=== PATIENT | male | born 1990 | race Caucasian/White ===

== ENCOUNTER 2021-11-27 00:25 | Day surgery (SDC) | payer BC, SELFPAY ==
[2021-11-12 13:47] VITALS: BMI 24.5
--- NOTE | 2021-11-26 10:44 | WPDANESEPPF ---
Anes - Initial Pre Proc Eval Procedure: Operation Date: 11/27/21 09:00 Proposed Procedures p Colonoscopy - Rj Pena MD Date/Time: 11/26/21 10:44 Surgeon: Rj Pena MD Pre Op Diagnosis: melena Patient Data Age: 31 Gender: M Height: 1.83 m Weight: 82 kg Allergies Allergy/AdvReac Type Severity Reaction Status Date / Time No Known Allergies Allergy Verified 11/27/21 07:34 Home Medications Medication Instructions Recorded Confirmed Type lisdexamfetamine 50 mg capsule 50 mg PO DAILY 10/09/20 11/12/21 History (Vyvanse) fluticasone propionate 50 2 spray intranasal DAILY #16 grams 12/22/20 11/12/21 Rx mcg/actuation nasal spray,suspension (Flonase Allergy Relief) hydrocortisone 2.5 % topical cream 1 applic RECTAL TID PRN 10/12/21 11/12/21 Rx with perineal applicator hemorrhoids #30 grams Patient hx anesthesia problems: none Family hx anesthesia problems: none Results Review: All pre-operative results and documents have been reviewed as part of the pre-operative evaluation. [facility] Past Medical History Medical History (Updated 11/26/21 @ 10:45 by Dk Baird DO) Anxiety Surgical History Surgical History H/O removal of cyst from lower back Family History Family History Mother Family history of thyroid disease Family history of obesity Father Diabetes mellitus Family history of obesity Depression Grandparent Diabetes mellitus Family history of Alzheimer's disease Mother Depression Hypertension Social History Social History Smoking status: Never smoker Second hand tobacco smoke exposure: No Alcohol intake: never Substance use: current Substance use type: marijuana Living arrangements: alone Spiritual care concerns: No Anes - Eval Final PreProcedure Day of Procedure 11/26/21 10:44 Patient weight: normal Heart: regular rate and rhythm Lungs: clear to auscultation and normal air movement Airway: Mallampati scale class II Neurological: alert and oriented Last oral intake: >/= 8 hours ASA classification: II Emergent: no Anesthetic plan: proceed Anesthesia type and monitoring: general GIVS and standard monitoring Results Review: All pre-operative results and documents have been reviewed as part of the pre-operative evaluation. Informed Consent: The patient's anesthetic plan and its attendant risks and benefits were discussed with the patient/family/POA. Questions were solicited and answers provided to the satisfaction of the patient/family/POA.
[2021-11-27 07:42] VITALS: BP 118/77; PULSE 60; RESP 20; TEMP 36.4; O2SAT 99; BMI 24.6
[2021-11-27] MEDS: LACTATED RINGERS 1,000 ML 150 ML IV CONT (07:53)
--- NOTE | 2021-11-27 08:45 | PM.HPGS ---
History of Present Illness History of Present Illness Consent: Risks, benefits, and alternatives have been discussed and questions answered. Patient agrees to proceed with procedure. Chief complaint: melena Narrative: Joni Corrigan is a 31 year old male with intermittent blood in stool Review of Systems Constitutional: Constitutional: Denies headache(s) and Denies weakness Eyes: Eyes: Denies blurry vision ENT: Reports Normal hearing present, Denies headache(s) and Denies neck pain Cardiovascular: Cardiovascular: Denies chest pain and Denies dyspnea Respiratory: Respiratory: Denies dyspnea Gastrointestinal: Gastrointestinal: Reports no additional gastrointestinal complaints Genitourinary: Genitourinary: Denies dysuria Musculoskeletal: Musculoskeletal: Denies neck pain Integumentary/Breasts: Skin/Breast: Denies dry skin Neurologic: Reports Normal hearing present, Denies headache(s) and Denies weakness Psychiatric: Psychiatric: Denies anxiety Endocrine: Endocrine: Denies change in body appearance Hematologic/Lymphatic: Hematologic/Lymphatic: Denies easy bleeding Allergic/Immunologic: Allergic/Immunologic: Denies urticaria PMF Past Medical History Medical History (Updated 11/27/21 @ 08:45 by Rj Pena MD) Anxiety Rectal bleeding Surgical History Surgical History H/O removal of cyst from lower back Family History Family History Mother Family history of thyroid disease Family history of obesity Father Diabetes mellitus Family history of obesity Depression Grandparent Diabetes mellitus Family history of Alzheimer's disease Mother Depression Hypertension Social History Social History Smoking status: Never smoker Second hand tobacco smoke exposure: No Alcohol intake: never Substance use: current Substance use type: marijuana Living arrangements: alone Spiritual care concerns: No Meds Home Medications and Allergies Home Medications Medication Instructions Recorded Confirmed Type lisdexamfetamine 50 mg capsule 50 mg PO DAILY 10/09/20 11/12/21 History (Vyvguerline) fluticasone propionate 50 2 spray intranasal DAILY #16 grams 12/22/20 11/12/21 Rx mcg/actuation nasal spray,suspension (Flonase Allergy Relief) hydrocortisone 2.5 % topical cream 1 applic RECTAL TID PRN 10/12/21 11/12/21 Rx with perineal applicator hemorrhoids #30 grams Allergies Allergy/AdvReac Type Severity Reaction Status Date / Time No Known Allergies Allergy Verified 11/27/21 07:34 Vital Signs Vital Signs - 24 hr 11/27/21 07:42 Temperature 97.5 F L Pulse Rate 60 Respiratory Rate 20 Blood Pressure 118/77 Pulse Oximetry 99 Oxygen Delivery Room Air Exam Const: General: comfortable and no acute distress HENMT: General nose exam: Normal nares present Eyes: General: appearance normal, both eyes and all related structures Neck: Neck: no JVD Resp: Auscultation: clear to auscultation bilaterally Cardio: Rate: regular rate Rhythm: regular rhythm GI: Inspection: non-distended GI Palp: Yes Soft to palpation Skin: General skin exam: normal color Neuro: General: gait normal Speech: normal speech Extrem: General: normal to inspection Psych: Mental Status: mental status grossly normal Assessment and Plan Assessment and plan (1) Rectal bleeding: Code(s): K62.5 - Hemorrhage of anus and rectum Status: Acute Assessment and Plan: probably perianal but will proceed with colonoscopy
[2021-11-27 09:07] VITALS: BP 113/73; PULSE 80; RESP 19; O2SAT 99
[2021-11-27 09:17] VITALS: BP 123/77; PULSE 78; RESP 20; O2SAT 99
[2021-11-27 09:27] VITALS: BP 117/73; PULSE 66; RESP 15; O2SAT 100
== END 2021-11-27 09:33 | disposition home or self-care (01) ==
PROVIDERS: PCP Physician Assistant; Visit Provider Internal Medicine Gastroenterology
PROC: 0DJD8ZZ Inspection of Lower Intestinal Tract, Via Natural or Artificial Opening Endoscopic (ICD-10-PCS; CPT 45378; principal; 2021-11-27 09:00)
DX: K92.1 Melena (principal); K62.6 Ulcer of anus and rectum; K64.8 Other hemorrhoids; F41.9 Anxiety disorder, unspecified; F12.90 Cannabis use, unspecified, uncomplicated
CPT/HCPCS: 45380; 88305; J2704; J7120